=== PATIENT | male | born 1950 | race Caucasian/White ===

== ENCOUNTER → 2019-04-23 10:36 | Outpatient (CLI) | payer MEDICARE, OTHER ==
[2019-04-23 10:59] LABS: BASOPHILS 0.4 % (0-2); EOSINOPHILS 1.3 % (0-7); HEMOGLOBIN 17.3 g/dL (13.5-17.5); IMMATURE GRANULOCYTES 0.4 % (0-5); LYMPHOCYTES 16.8 % (15-50); MCH 29.5 pg (26.0-34.0); MCHC 33.9 g/dL (31.0-37.0); MCV 86.9 fL (80.0-100.0); MEAN PLATELET VOLUME 9.9 fL (7.4-10.4); MONOCYTES 16.6 % (2-11); NEUTROPHILS 64.5 % (40-80); PLATELET COUNT 262 10x3/uL (130-400); RBC 5.87 10x6/uL (4.20-6.10); RDW 14.2 % (11.5-14.5); WBC 5.5 10x3/uL (4.8-10.8)
[2019-04-25 18:08] LABS: TESTOSTERONE - FREE 5.9 pg/mL (6.6-18.1); TESTOSTERONE - SERUM 431 ng/dL (264-916)
== END | disposition home or self-care (01) ==
LOC: D.LAB 10:36
PROVIDERS: ATTEND Urology
DX: E29.1 Testicular hypofunction (principal); D75.1 Secondary polycythemia

== ENCOUNTER → 2019-05-24 11:37 | Outpatient (CLI) | payer MEDICARE, OTHER ==
[2019-05-26 07:13] LABS: TESTOSTERONE - FREE 4.5 pg/mL (6.6-18.1); TESTOSTERONE - SERUM 343 ng/dL (264-916)
== END | disposition home or self-care (01) ==
LOC: D.LAB 11:37
PROVIDERS: ATTEND Urology
DX: E29.1 Testicular hypofunction (principal)

== ENCOUNTER → 2019-06-22 13:56 | Outpatient (CLI) | payer MEDICARE, OTHER ==
[2019-06-24 19:10] LABS: TESTOSTERONE - FREE 4.1 pg/mL (6.6-18.1); TESTOSTERONE - SERUM 314 ng/dL (264-916)
== END | disposition home or self-care (01) ==
LOC: D.LAB 13:56
PROVIDERS: ATTEND Urology
DX: E29.1 Testicular hypofunction (principal)

== ENCOUNTER → 2019-07-20 12:04 | Outpatient (CLI) | payer MEDICARE, OTHER ==
[2019-07-22 08:08] LABS: TESTOSTERONE - FREE 5.6 pg/mL (6.6-18.1); TESTOSTERONE - SERUM 289 ng/dL (264-916)
== END | disposition home or self-care (01) ==
LOC: D.LAB 12:04
PROVIDERS: ATTEND Urology
DX: E29.1 Testicular hypofunction (principal)